=== PATIENT | female | born 1990 | race Two or more races ===

== ENCOUNTER 2024-05-08 10:20 | Emergency (ER) | payer BC, OTHER, SELFPAY ==
--- NOTE | 2024-05-08 10:30 | PC.NURSE ---
PATIENT SEEN LEAVING WITH SPOUSE WHO STATED THEY WERE GOING TO PRIMARY.
--- NOTE | 2024-05-08 12:52 | PD.EDADDENDU ---
Emergency Room Addendum Addendum Narrative: Patient eloped shortly after being medically screened. She was not seen by this provider.
== END 2024-05-08 11:02 | disposition left against medical advice (07) ==
LOC: SERX 10:40
PROVIDERS: Emergency Provider Internal Medicine Critical Care Medicine
DX: Z53.21 Procedure and treatment not carried out due to patient leaving prior to being seen by health care provider (principal)